=== PATIENT | male | born 1990 | race Caucasian/White ===

== ENCOUNTER 2017-07-12 16:55 | Emergency (ER) | payer MEDICAID ==
[2017-07-12 17:11] VITALS: BP 143/82
--- NOTE | 2017-07-12 17:30 | EDM.PDOC ---
ED HPI GENERAL MEDICAL PROBLEM - General Chief Complaint: General Stated Complaint: red, itching, swollen arm Time Seen by Provider: 07/12/17 17:03 Source of Information: Reports: Patient History Limitations: Reports: No Limitations - History of Present Illness INITIAL COMMENTS - FREE TEXT/NARRATIVE: Patient is here complaining of swelling and itching in left upper arm. Started yesterday after he had allergy shot. He is new to shots and has only recently begun immunotherapy for dust mites and other allergens. He took Benadryl once last night for the itching, but nothing today. Said he came in after someone he knows that is a nurse suggested that he could be getting a cellulitis. Next scheduled shot is Friday. No fevers. Denies SOB/cough/wheezing/sneezing. No swelling anywhere else. No other rash. No hives. Rates the discomfort from the itching/burning as a "7". Left Upper Arm Pain Score (Numeric/FACES): 7 - Related Data Allergies Allergy/AdvReac Type Severity Reaction Status Date / Time infant formula with iron Allergy Cannot Verified 07/12/17 16:59 [From Similac] Remember formula,regular Allergy Cannot Verified 07/12/17 16:59 [From Similac] Remember sulfamethoxazole Allergy Cannot Verified 07/12/17 16:59 [From Septra] Remember trimethoprim [From Septra] Allergy Cannot Verified 07/12/17 16:59 Remember dust mites Allergy Itching Uncoded 07/12/17 16:59 Home Meds: Home Meds Bismuth Subsalicylate [Pepto Bismol] 262 mg PO DAILY PRN 07/23/14 [History] Ibuprofen [Advil Liqui-Gels] 200 - 400 mg PO Q6HR PRN 07/23/14 [History] Doxepin HCl [Doxepin] 50 mg PO BEDTIME 07/12/17 [History] EPINEPHrine [Epinephrine] 1 applic SUBCUT ASDIRECTED PRN 07/12/17 [History] Montelukast Sodium [Singulair] 10 mg PO DAILY 07/12/17 [History] Ondansetron HCl [Ondansetron] 1 tab PO Q6H PRN 07/12/17 [History] Rizatriptan Benzoate [Rizatriptan] 1 tab PO ASDIRECTED PRN 07/12/17 [History] diphenhydrAMINE HCl [Benadryl] 50 mg PO Q6H PRN 07/12/17 [History] Past Medical History HEENT History: Reports: Allergic Rhinitis, Impaired Vision Respiratory History: Reports: Asthma Musculoskeletal History: Reports: None Neurological History: Reports: Migraines Endocrine/Metabolic History: Reports: Obesity/BMI 30+ Immunologic History: Reports: Other (See Below) (Multiple environmental allergies.) - Past Surgical History HEENT Surgical History: Reports: Adenoidectomy, Tonsillectomy GI Surgical History: Reports: Cholecystectomy Musculoskeletal Surgical History: Reports: None Social & Family History - Family History Family Medical History: Noncontributory - Tobacco Use Smoking Status *Q: Never Smoker Second Hand Smoke Exposure: Yes Second Hand Smoke Education Provided: Patient Refused - Alcohol Use Days Per Week of Alcohol Use: 1 - Recreational Drug Use Recreational Drug Use: No - Living Situation & Occupation Living situation: Reports: Single Occupation: Employed ED ROS GENERAL - Review of Systems Review Of Systems: See Below Constitutional: Denies: Fever, Chills, Malaise, Weakness, Fatigue, Night Sweats , Diaphoresis, Decreased Appetite HEENT: Reports: No Symptoms. Denies: Eye Discharge, Rhinitis, Throat Swelling, Vision Change Respiratory: Reports: No Symptoms. Denies: Shortness of Breath, Wheezing, Pleuritic Chest Pain, Cough, Sputum Cardiovascular: Reports: No Symptoms GI/Abdominal: Reports: No Symptoms : Reports: No Symptoms Musculoskeletal: Reports: Other (discomfort around injection site left posterior upper arm). Denies: Joint Pain, Joint Swelling Skin: Reports: Erythema (Area of erythema and mild warmth posterior left upper arm. No drainage. No focal point of increased redness/tenderness. No pustules/ vesicles. ). Denies: Lesions, Urticaria Neurological: Reports: No Symptoms Psychiatric: Reports: No Symptoms Hematologic/Lymphatic: Reports: No Symptoms Immunologic: Reports: Environmental Allergy ED EXAM, GENERAL - Physical Exam Exam: See Below Exam Limited By: No Limitations General Appearance: Alert, No Apparent Distress, Obese Eye Exam: Bilateral Eye: EOMI, Normal Inspection, PERRL Ears: Normal External Exam Nose: Normal Inspection Throat/Mouth: Normal Inspection, Normal Lips, Normal Voice, No Airway Compromise Head: Atraumatic, Normocephalic Neck: Supple, Non-Tender Respiratory/Chest: No Respiratory Distress, Lungs Clear, Normal Breath Sounds, No Accessory Muscle Use Cardiovascular: Normal Peripheral Pulses, Regular Rate, Rhythm, No Edema, No Murmur Peripheral Pulses: 2+: Radial (L), Radial (R) GI/Abdominal: Soft, Non-Tender, No Distention Back Exam: No: CVA Tenderness (L), CVA Tenderness (R) Extremities: Normal Inspection, Normal Capillary Refill Neurological: Alert, Oriented, Normal Cognition, Normal Gait Psychiatric: Normal Affect, Normal Mood Skin Exam: Warm, Dry, Erythema (mild, posterior left upper arm.), Increased Warmth (mild, left upper arm). No: Diaphoretic, Ecchymosis, Petechiae, Zoster- Like Rash Course - Vital Signs Last Recorded V/S: Last Vital Signs Temp 36.6 C 07/12/17 17:03 Pulse 89 07/12/17 17:03 Resp 18 07/12/17 17:03 BP 143/82 H 07/12/17 17:03 Pulse Ox 100 07/12/17 17:03 - Re-Assessments/Exams Free Text/Narrative Re-Assessment/Exam: 07/12/17 17:48 STrongly suspect normal localized reaction around area of allergy shot that was given yesterday. No systemic complaints at this time. Patient is very concerned that this could be due to an infection. He is afebrile. Education offered concerning signs/symptoms of cellulitis vs tissue response due to allergen injection. Patient is recommended to continue regular Benadryl. May also try topical hydrocortisone/Benadryl/ and ice packs. We will have him start on a lower dose of Keflex twice daily. He was given medicine from the ER stock cabinet. Numerous precautions discussed prior to discharge. Patient knows he is to return for recheck if swelling worsens or if he develops any symptoms suggesting anaphylaxis. Most importantly, he was advised multiple times on the necessity to relay to the clinic on Friday that he had this much swelling after his shot, so that they may decrease the dose given Friday accordingly. Departure - Departure Time of Disposition: 17:24 Disposition: Home, Self-Care 01 Condition: Good Clinical Impression: History of immunotherapy Injection site reaction Qualifiers: Encounter type: initial encounter Qualified Code(s): T80.90XA - Unspecified complication following infusion and therapeutic injection, initial encounter - Discharge Information Instructions: Allergy Shots, Cellulitis, Adult, [id number] Referrals: Musa Jovel [employer] [Primary Care Provider] - Forms: ED Department Discharge Additional Instructions: As we discussed, this is most likely a reaction to the allergy shot you received yesterday. However, you will be taking antibiotics for the next 6 days to help cover the chance of bacterial infection. Take one capsule every 12 hours. Recommend taking Benadryl, 2 tablets, every 6 hours for the next 24 hours. If irritation persists, you may continue to take 1-2 tablets every 6 hours to help with the itching and reaction. You may also apply Hydrocortisone cream or Benadryl cream over the involved skin. These can be found at the local store. Ice over the affected area can help with the discomfort. Follow up again if you develop worsening problems, such as fever, or hives/ swelling in other areas of the body, or wheezing/shortness of breath. YOU MUST TELL THE CLINIC that you had this much redness and swelling/itching so that they can ADJUST THE DOSE of your next shot to a LOWER LEVEL. Otherwise the next reaction could be even worse.
== END 2017-07-12 17:50 | disposition home or self-care (01) ==
LOC: LL.ED 16:55
DX: T80.90XA Unspecified complication following infusion and therapeutic injection, initial encounter (principal); Z88.2 Allergy status to sulfonamides; Z88.1 Allergy status to other antibiotic agents; Z79.899 Other long term (current) drug therapy; Z92.25 Personal history of immunosuppression therapy
CPT/HCPCS: 99283

== ENCOUNTER 2023-12-18 11:58 | Day surgery (SDC) | payer BC, MEDICAID ==
[~2023-12-18 11:58] MED LIST: Midazolam 1 MG/ML 2 ML SDV ONE; Propofol 200 MG/20 ML SDV ONE
[2023-12-18] MEDS ORDERED: Sodium Chloride 0.9% 10 ML Syringe FLUSH PRN (12:00)
[2023-12-18] MEDS: Lactated Ringers 1,000 ML IV SCH (12:26)
[2023-12-18 14:43] VITALS: BP 140/80; PULSE 80
== END 2023-12-18 14:36 | disposition home or self-care (01) ==
LOC: LL.SDS 11:58
PROVIDERS: ATTEND Surgery
DX: D12.5 Benign neoplasm of sigmoid colon (principal); Z88.2 Allergy status to sulfonamides
CPT/HCPCS: 00811; J2250; J2704; J7120